=== PATIENT | female | born 1980 | race Caucasian/White ===

== ENCOUNTER → 2020-04-10 | Outpatient (CLI) | payer BC ==
[~2020-04-10] VITALS: Ht 167.6 cm; Wt 45.4 kg
[~2020-04-10] MED LIST: FLOMAX 0.4 MG0.4 MG PO; ONDANSETRON ODT4 MG SL; PERCOCET 5/325 T1 EA PO; TORADOL 10 MG T10 MG PO
== END ==
LOC: OPSV 04-03 12:00
DX: G35 Multiple sclerosis (principal)
CPT/HCPCS: 96365; J2323

== ENCOUNTER → 2020-05-14 | Outpatient (CLI) | payer BC ==
[~2020-05-14] VITALS: Ht 167.6 cm; Wt 45.4 kg
== END ==
LOC: OPSV 05-08 11:00
DX: G35 Multiple sclerosis (principal)
CPT/HCPCS: 96365; J2323

== ENCOUNTER → 2020-06-21 | Outpatient (CLI) | payer BC ==
[~2020-06-21] VITALS: Ht 167.6 cm; Wt 45.4 kg
== END ==
LOC: OPSV 06-11 11:00
DX: G35 Multiple sclerosis (principal)
CPT/HCPCS: 96365; J2323

== ENCOUNTER → 2020-07-19 | Outpatient (CLI) | payer BC ==
[~2020-07-19] VITALS: Ht 167.6 cm; Wt 45.4 kg
== END ==
LOC: OPSV 11:00
DX: G35 Multiple sclerosis (principal)
CPT/HCPCS: 96365; J2323

== ENCOUNTER → 2020-08-16 | Outpatient (CLI) | payer BC ==
[~2020-08-16] VITALS: Ht 167.6 cm; Wt 45.4 kg
== END ==
LOC: OPSV 11:00
DX: G35 Multiple sclerosis (principal)
CPT/HCPCS: 96365; J2323

== ENCOUNTER 2020-09-10 13:01 | Emergency (ER) | payer BC ==
[2020-09-10 13:59] LABS: HEMOGLOBIN 12.9 gm/dl (12.3-15.3); RED BLOOD COUNT 4.11 M/UL (4.00-5.10); WHITE BLOOD COUNT 10.8 K/UL (4.5-11.0)
[2020-09-10 14:16] LABS: BUN/CREATININE RATIO 23 (0-10)
[2020-09-10] MEDS ORDERED: TORADOL 10 MG T10 MG PO (16:18)
[2020-09-10] MEDS ORDERED: ONDANSETRON ODT4 MG SL (16:18)
[2020-09-10] MEDS ORDERED: FLOMAX 0.4 MG0.4 MG PO (16:18)
[2020-09-10] MEDS ORDERED: PERCOCET 5/325 T1 EA PO (16:25)
== END 2020-09-10 16:45 | disposition home or self-care (01) ==
LOC: ER1 13:01
PROVIDERS: Physician Assistant
DX: N13.2 Hydronephrosis with renal and ureteral calculous obstruction (principal); N83.202 Unspecified ovarian cyst, left side; G35 Multiple sclerosis; F17.200 Nicotine dependence, unspecified, uncomplicated; Z79.899 Other long term (current) drug therapy
CPT/HCPCS: 80053; 81001; 83690; 84703; 85025; 96374; 96375; 99284; J1885; J2270; J2405; J7030

== ENCOUNTER → 2020-09-13 | Outpatient (CLI) | payer BC ==
[~2020-09-13] VITALS: Ht 167.6 cm; Wt 45.4 kg
== END ==
LOC: OPSV 11:00
DX: G35 Multiple sclerosis (principal)
CPT/HCPCS: 96365; J2323

== ENCOUNTER → 2020-10-11 | Outpatient (CLI) | payer BC ==
[~2020-10-11] VITALS: Ht 167.6 cm; Wt 45.4 kg
[~2020-10-11] MED LIST changes: +PYRIDIUM200 MG PO; +VALTREX1000 MG PO
== END ==
LOC: OPSV 11:00
DX: G35 Multiple sclerosis (principal)
CPT/HCPCS: 96365; J2323

== ENCOUNTER 2020-10-17 09:40 | Emergency (ER) | payer BC ==
[~2020-10-17 09:40] MED LIST changes: -PYRIDIUM200 MG PO; -VALTREX1000 MG PO
[2020-10-17 10:59] LABS: HEMOGLOBIN 13.8 gm/dl (12.3-15.3); RED BLOOD COUNT 4.4 M/UL (4.00-5.10); WHITE BLOOD COUNT 13.5 K/UL (4.5-11.0)
[2020-10-17 11:27] LABS: BUN/CREATININE RATIO 22 (0-10)
[2020-10-17] MEDS ORDERED: TORADOL 10 MG T10 MG PO (13:26)
[2020-10-17] MEDS ORDERED: PYRIDIUM200 MG PO (13:26)
[2020-10-17] MEDS ORDERED: VALTREX1000 MG PO (13:43)
== END 2020-10-17 13:51 | disposition home or self-care (01) ==
LOC: ER1 09:40
PROVIDERS: Nurse Practitioner
DX: N23 Unspecified renal colic (principal); B02.9 Zoster without complications; R30.0 Dysuria; Z87.440 Personal history of urinary (tract) infections; F17.210 Nicotine dependence, cigarettes, uncomplicated
CPT/HCPCS: 80053; 81001; 83605; 83690; 84703; 85025; 87086; 93005; 96374; 96375; 99284; J1885; J2405

== ENCOUNTER → 2020-11-22 | Outpatient (CLI) | payer BC ==
[~2020-11-22] VITALS: Ht 167.6 cm; Wt 45.4 kg
[~2020-11-22] MED LIST changes: +PYRIDIUM200 MG PO; +VALTREX1000 MG PO
== END ==
LOC: OPSV 10:55
DX: G35 Multiple sclerosis (principal)
CPT/HCPCS: 96365; J2323

== ENCOUNTER → 2020-12-20 | Outpatient (CLI) | payer BC | LOC: OPSV 11:00 | DX: G35 Multiple sclerosis (principal) | CPT/HCPCS: 96365; J2323 ==

== ENCOUNTER → 2021-01-17 | Outpatient (CLI) | payer BC | LOC: OPSV 11:00 | DX: G35 Multiple sclerosis (principal) | CPT/HCPCS: 96365; J2323 ==

== ENCOUNTER → 2021-02-13 | Outpatient (CLI) | payer BC ==
[~2021-02-13] VITALS: Ht 167.6 cm; Wt 45.4 kg
== END ==
LOC: OPSV 11:00
DX: G35 Multiple sclerosis (principal)
CPT/HCPCS: G0463

== ENCOUNTER → 2021-02-25 | Outpatient (CLI) | payer BC | LOC: OPSV 11:00 | DX: G35 Multiple sclerosis (principal) | CPT/HCPCS: 96365; 96375; J2323 ==

== ENCOUNTER → 2021-04-01 | Outpatient (CLI) | payer BC | LOC: OPSV 10:55 | DX: G35 Multiple sclerosis (principal) | CPT/HCPCS: 96365; J2323 ==

== ENCOUNTER → 2021-04-29 | Outpatient (CLI) | payer BC ==
[~2021-04-29] VITALS: Ht 167.6 cm; Wt 45.4 kg
== END ==
LOC: OPSV 11:00
DX: G35 Multiple sclerosis (principal)
CPT/HCPCS: 96365; J2323

== ENCOUNTER → 2021-05-27 | Outpatient (CLI) | payer BC ==
[~2021-05-27] VITALS: Ht 167.6 cm; Wt 45.4 kg
== END ==
LOC: OPSV 11:00
DX: G35 Multiple sclerosis (principal)
CPT/HCPCS: 96365; J2323

== ENCOUNTER → 2021-07-01 | Outpatient (CLI) | payer BC ==
[~2021-07-01] VITALS: Ht 167.6 cm; Wt 45.4 kg
== END ==
LOC: OPSV 10:50
DX: G35 Multiple sclerosis (principal)
CPT/HCPCS: 96365; J2323

== ENCOUNTER → 2021-07-29 | Outpatient (CLI) | payer BC ==
[~2021-07-29] VITALS: Ht 167.6 cm; Wt 45.4 kg
== END ==
LOC: OPSV 11:00
DX: G35 Multiple sclerosis (principal)
CPT/HCPCS: 96365; J2323

== ENCOUNTER → 2021-08-26 | Outpatient (CLI) | payer BC ==
[~2021-08-26] VITALS: Ht 167.6 cm; Wt 45.4 kg
== END ==
LOC: OPSV 11:00
DX: G35 Multiple sclerosis (principal)
CPT/HCPCS: 96365; J2323

== ENCOUNTER → 2021-09-24 | Outpatient (CLI) | payer BC ==
[~2021-09-24] VITALS: Ht 167.6 cm; Wt 45.4 kg
== END ==
LOC: OPSV 11:00
DX: G35 Multiple sclerosis (principal)
CPT/HCPCS: 96365; J2323

== ENCOUNTER → 2021-10-21 | Outpatient (CLI) | payer BC ==
[~2021-10-21] VITALS: Ht 167.6 cm; Wt 45.4 kg
== END ==
LOC: OPSV 11:00
DX: G35 Multiple sclerosis (principal)
CPT/HCPCS: 96365; J2323

== ENCOUNTER → 2021-11-18 | Outpatient (CLI) | payer BC ==
[~2021-11-18] VITALS: Ht 167.6 cm; Wt 45.4 kg
== END ==
LOC: OPSV 10:48
DX: G35 Multiple sclerosis (principal)
CPT/HCPCS: 96365; J3380; J7050

== ENCOUNTER → 2021-12-16 | Outpatient (CLI) | payer BC | LOC: OPSV 11:00 | DX: G35 Multiple sclerosis (principal) | CPT/HCPCS: 96365; J2323 ==